=== PATIENT | female | born 1995 | race Caucasian/White ===

== ENCOUNTER 2023-12-08 09:17 | Emergency (ER) | payer BC ==
[~2023-12-08] VITALS: Ht 162.6 cm; Wt 100.9 kg
[2023-12-08 09:22] VITALS: BP 122/96; TEMP 97.9
[2023-12-08] MEDS ORDERED: PREDNISONE20 MG PO (09:42)
[2023-12-08] MEDS ORDERED: ZITHROMAX Z PA250 MG PO (09:42)
[2023-12-08 11:43] VITALS: PULSE 100
== END 2023-12-08 11:44 | disposition home or self-care (01) ==
LOC: COL.ER 09:17
DX: J20.9 Acute bronchitis, unspecified (principal)